=== PATIENT | male | born 1990 | race African-American/Black ===

== ENCOUNTER 2021-12-29 09:00 | Emergency (ER) | payer MEDICAID, OTHER ==
[~2021-12-29] VITALS: Ht 167.6 cm; Wt 81.6 kg
[2021-12-29] MEDS ORDERED: LIDOCAINE 1% HCL (LOCAL ANESTH.) INJ 20ML MDV IJ ONE (09:30)
[2021-12-29] MEDS ORDERED: LIDOCAINE 1%HCL (LOCAL ANESTH) 10 ML MDV ONE (09:36)
[2021-12-29 09:38] VITALS: BP 126/73
[2021-12-29] MEDS ORDERED: cefTRIAXone SOD 1,000 MG VL IM ONE (09:45)
[2021-12-29] MEDS ORDERED: SULF400T11 PO (09:47)
[2021-12-29] MEDS ORDERED: NAPR500T31 PO (09:47)
== END 2021-12-29 09:59 | disposition home or self-care (01) ==
LOC: ER 09:00
DX: L02.413 Cutaneous abscess of right upper limb (principal); F17.210 Nicotine dependence, cigarettes, uncomplicated; Z79.899 Other long term (current) drug therapy
CPT/HCPCS: 10060; 87077; 87186; 87205; 96372; 99283; J0696; J2001